=== PATIENT | female | born 1950 | race African-American/Black ===

== ENCOUNTER 2016-12-05 21:34 | Inpatient (IN) | payer MEDICARE, MEDICAID ==
[~2016-12-05] VITALS: Ht 160 cm; Wt 91.0 kg
[~2016-12-05 21:34] MED LIST: CLON0.2T PO; CORE3.12 OR; HYDR-2768 PO; LANTUSP SQ; LISI40TA PO; NOVO7030P2 SQ
[2016-12-05 21:41] VITALS: BP 182/87; PULSE 118; RESP 22; TEMP 98.3; O2SAT 97
[2016-12-05] MEDS ORDERED: SODIUM CHLOR 0.9% 1000 ML INJ 1,000 ML IV SCH (21:53)
[2016-12-05 21:56] VITALS: RESP 20
[2016-12-05] MEDS ORDERED: ONDANSETRON HCL 4 MG/2 ML VIAL IVP ONE (22:00)
[2016-12-05] MEDS ORDERED: MORPHINE SULFATE 4 MG/ML INJ IV PUSH ONE (22:00)
[2016-12-05] MEDS ORDERED: PANTOPRAZOLE SODIUM 40 MG VIAL IV PUSH ONE (22:00)
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
[2016-12-05 22:39] LABS: AUTOMATED NEUTROPHIL # 16.3 TH/MM3 (1.8-7.7); BASOPHIL # 0.1 TH/MM3 (0-0.2); BASOPHIL % 0.6 % (0.0-2.0); HEMATOCRIT 38.1 % (35.0-46.0); HEMO FLAGS DIFF FINAL; LYMPHOCYTE # 1.5 TH/MM3 (1.0-4.8); MEAN CELL VOLUME 86.2 FL (80.0-100.0); MEAN CORPUSCULAR HEMOGLOBIN 29.9 PG (27.0-34.0); MEAN CORPUSCULAR HGB CONC 34.7 % (32.0-36.0); MONO % 2.6 % (0.0-8.0); NEUT % 88.8 % (16.0-70.0); PLATELET COUNT 363 TH/MM3 (150-450); RED BLOOD COUNT 4.42 MIL/MM3 (4.00-5.30); RED CELL DISTRIBUTION WIDTH 14.3 % (11.6-17.2); WHITE BLOOD COUNT 18.4 TH/MM3 (4.0-11.0)
[2016-12-05 22:57] LABS: ANION GAP 17 MEQ/L (5-15); AST (GOT) 18 U/L (15-37); BICARBONATE 22.3 MEQ/L (21.0-32.0); BLOOD UREA NITROGEN 21 MG/DL (7-18); CHLORIDE 101 MEQ/L (98-107); GLOMERULAR FILTRATION RATE 50 ML/MIN (>89); POTASSIUM 3.4 MEQ/L (3.5-5.1); SODIUM (NA) 140 MEQ/L (136-145)
[2016-12-05 23:01] LABS: ALKALINE PHOSPHATASE 132 U/L (45-117); ALT (GPT) 26 U/L (10-53); TOTAL BILIRUBIN ADULT 0.5 MG/DL (0.2-1.0)
[2016-12-05] MEDS ORDERED: IOHEXOL 350 MG/ML 10 ML VIAL (for RAD DIAG) IV ONE (23:17)
[2016-12-05 23:32] LABS: BACTERIA, URINE RARE /hpf; BLOOD, URINE MOD (NEG); COMMENT (UR) CULT NOT INDICATED; CULTURE IF INDICATED CULT NOT INDICATED; GLUCOSE,URINE NEG (NEG); KETONE, URINE NEG (NEG); MUCUS URINE FEW /lpf (OCC); NITRITE,URINE NEG (NEG); PH, URINE 7.5 (5.0-8.5); SQUAMOUS EPITHELIAL CELL URINE 2 /hpf (0-5); URINE COLOR YELLOW (YELLW/STRAW)
[2016-12-05 23:34] LABS: APTT (PATIENT) 25.2 SEC (24.3-30.1); INTERNATIONAL NORMALIZED RATIO 0.9 RATIO
--- NOTE | 2016-12-05 23:34 | RADRPT ---
EXAM DATE/TIME: 12/05/2016 23:14 This report includes an Addendum and supersedes previous reports for this exam. [facility] COMPARISON: No previous studies available for comparison. INDICATIONS : Abdominal pain. IV CONTRAST: 96 cc Omnipaque 350 (iohexol) IV ORAL CONTRAST: No oral contrast ingested. RADIATION DOSE: 16.52 CTDIvol (mGy) MEDICAL HISTORY : Hypertension. Diabetes mellitus type 2. SURGICAL HISTORY : Appendectomy. Hysterectomy. ENCOUNTER: Initial ACUITY: 1 day PAIN SCALE: 6/10 LOCATION: abdomen TECHNIQUE: Volumetric scanning of the abdomen and pelvis was performed. Using automated exposure control and ad justment of the mA and/or kV according to patient size, radiation dose was kept as low as reasonably achievable to obtain optimal diagnostic quality images. FINDINGS: LOWER LUNGS: The visualized lower lungs are clear. LIVER: Homogeneous density without lesion. There is no dilation of the biliary tree. Gallbladder is surgica lly absent. SPLEEN: Normal size without lesion. PANCREAS: Within normal limits. KIDNEYS: Normal in size and shape. There is no mass, stone or hydronephrosis. A 3.6 cm simple cyst is seen ex ophytic from the lower pole the right kidney. Hounsfield units are 6. ADRENAL GLANDS: Within normal limits. VASCULAR: There is no aortic aneurysm. BOWEL/MESENTERY: There is circumferential wall thickening and mild stranding of the pericolonic fat throughout the felipe cending colon. Distal to this the rectosigmoid colon and proximal to this the transverse and ascendin g colon are normal in appearance. Small bowel is unremarkable. No free air or free fluid. ABDOMINAL WALL: Within normal limits. RETROPERITONEUM: There is no lymphadenopathy. BLADDER: No wall thickening or mass. REPRODUCTIVE: Within normal limits. INGUINAL: There is no lymphadenopathy or hernia. MUSCULOSKELETAL: Within normal limits for patient age. CONCLUSION: 1. Wall thickening and mild inflammatory changes involving the descending colon without diverticula. This is consistent with an inflammatory process. Ischemia seen in Crohn's disease as well as ulcerati ve colitis. I would suggest followup imaging to document complete resolution. 2. Prior cholecystectomy. Abe March Jr., MD on December 05, 2016 at 23:28 Board Certified Radiologist. This report was verified electronically. ADDENDUM: Mesenteric ischemia could have this same appearance. Abe March Jr., MD on December 06, 2016 at 0:10 Board Certified Radiologist. This report was verified electronically.
[2016-12-06] VITALS (21 sets, daily range): BP systolic 145–174; BP diastolic 62–81; PULSE 89–105; RESP 15–18; TEMP 98.1–99.2; O2SAT 97–100
[2016-12-06] MEDS ORDERED: PIPERACIL-TAZO 3.375 GM PREMIX 50 ML IV ONE (00:15)
[2016-12-06] MEDS ORDERED: SODIUM CHLOR 0.9% 1000 ML INJ 1,000 ML IV ONE (00:15)
[2016-12-06] MEDS ORDERED: SODIUM CHLOR 0.9% 250 ML INJ 250 ML IV ONE (00:15)
--- NOTE | 2016-12-06 02:14 | RADRPT ---
EXAM DATE/TIME: 12/05/2016 23:14 [facility] COMPARISON: No previous studies available for comparison. INDICATIONS : Mesenteric ischemia. IV CONTRAST: 100 cc Omnipaque 350 (iohexol) IV ; Cumulative dose for multiple exams. ORAL CONTRAST: No oral contrast ingested. RADIATION DOSE: CTDIvol (mGy) ; Reconstructed from previous dataset MEDICAL HISTORY : Hypertension. Diabetes mellitus type 2. SURGICAL HISTORY : Cholecystectomy. Hysterectomy. ENCOUNTER: Initial ACUITY: 2 days PAIN SCALE: 6/10 LOCATION: abdomen TECHNIQUE: 3-D postprocessing reformations were performed utilizing the dataset from the patient's prior CT scan . FINDINGS: ABDOMINAL AORTA: The lumen is smooth without significant narrowing or aneurismal dilation. The proximal celiac, superi or mesenteric, and inferior mesenteric arteries are patent and normal in diameter. There are solitar y renal arteries bilaterally without gross abnormality. BIFURCATION: Normal. RIGHT PELVIS: The right common iliac, internal iliac and external iliac vessels are patent without luminal irregula rity. LEFT PELVIS: The left common iliac, internal iliac and external iliac vessels are patent and without luminal irreg ularity. CONCLUSION: 1. Patent mesenteric vessels. Abe March Jr., MD on December 06, 2016 at 2:10 Board Certified Radiologist. This report was verified electronically.
--- NOTE | 2016-12-06 02:16 | PD ---
Data Data Last Documented VS Vital Signs Date Time Temp Pulse Resp B/P Pulse Ox O2 Delivery O2 Flow Rate FiO2 12/06/16 02:30 100 16 154/71 99 Nasal Cannula 2 12/06/16 02:15 98.6 Orders Complete Blood Count With Diff (12/05/16 21:53) Comprehensive Metabolic Panel (12/05/16 21:53) Lipase (12/05/16 21:53) Lactic Acid (12/05/16 21:53) Prothrombin Time / Inr (Pt) (12/05/16 21:53) Act Partial Throm Time (Ptt) (12/05/16 21:53) Urinalysis - C+S If Indicated (12/05/16 21:53) Ct Abd/Pel W Iv Contrast(Rout) (12/05/16 21:53) Iv Access Insert/Monitor (12/05/16 21:53) Ecg Monitoring (12/05/16 21:53) Oximetry (12/05/16 21:53) Morphine Inj (Morphine Inj) (12/05/16 22:00) Ondansetron Inj (Zofran Inj) (12/05/16 22:00) Sodium Chlor 0.9% 1000 Ml Inj (Ns 1000 M (12/05/16 21:53) Pantoprazole Inj (Protonix Inj) (12/05/16 22:00) Type And Screen (12/05/16 21:53) Blood Culture (12/05/16 22:15) Iohexol 350 Inj (Omnipaque 350 Inj) (12/05/16 23:17) Red Blood Cells (Rbc) (12/06/16 00:01) Blood Product Administration .UPON TRANSFUSION (12/06/16 00:01) Sodium Chlor 0.9% 250 Ml Inj (Ns 250 Ml (12/06/16 00:15) Piperacil-Tazo 3.375 Gm Premix (Zosyn 3. (12/06/16 00:15) Sodium Chlor 0.9% 1000 Ml Inj (Ns 1000 M (12/06/16 00:15) Cta Abd/Pel W Iv Contrast W 3d (12/06/16 ) Admit Order (Ed Use Only) (12/06/16 02:57) Labs Laboratory Tests Test 12/05/16 12/05/16 12/06/16 12/06/16 22:10 23:00 00:01 01:16 White Blood Count 18.4 TH/MM3 Red Blood Count 4.42 MIL/MM3 Hemoglobin 13.2 GM/DL Hematocrit 38.1 % Mean Corpuscular Volume 86.2 FL Mean Corpuscular Hemoglobin 29.9 PG Mean Corpuscular Hemoglobin 34.7 % Concent Red Cell Distribution Width 14.3 % Platelet Count 363 TH/MM3 Mean Platelet Volume 8.3 FL Neutrophils (%) (Auto) 88.8 % Lymphocytes (%) (Auto) 8.0 % Monocytes (%) (Auto) 2.6 % Eosinophils (%) (Auto) 0.0 % Basophils (%) (Auto) 0.6 % Neutrophils # (Auto) 16.3 TH/MM3 Lymphocytes # (Auto) 1.5 TH/MM3 Monocytes # (Auto) 0.5 TH/MM3 Eosinophils # (Auto) 0.0 TH/MM3 Basophils # (Auto) 0.1 TH/MM3 CBC Comment DIFF FINAL Differential Comment Prothrombin Time 10.0 SEC Prothromb Time International 0.9 RATIO Ratio Activated Partial 25.2 SEC Thromboplast Time Sodium Level 140 MEQ/L Potassium Level 3.4 MEQ/L Chloride Level 101 MEQ/L Carbon Dioxide Level 22.3 MEQ/L Anion Gap 17 MEQ/L Blood Urea Nitrogen 21 MG/DL Creatinine 1.29 MG/DL Estimat Glomerular Filtration 50 ML/MIN Rate Random Glucose 143 MG/DL Lactic Acid Level 4.8 mmol/L Calcium Level 9.9 MG/DL Total Bilirubin 0.5 MG/DL Aspartate Amino Transf 18 U/L (AST/SGOT) Alanine Aminotransferase 26 U/L (ALT/SGPT) Alkaline Phosphatase 132 U/L Total Protein 8.0 GM/DL Albumin 3.8 GM/DL Lipase 70 U/L Blood Type O POSITIVE O POSITIVE Antibody Screen NEGATIVE Blood Bank Comment Urine Color YELLOW Urine Turbidity CLEAR Urine pH 7.5 Urine Specific [place] 1.013 Urine Protein NEG mg/dL Urine Glucose (UA) NEG mg/dL Urine Ketones NEG mg/dL Urine Occult Blood MOD Urine Nitrite NEG Urine Bilirubin NEG Urine Urobilinogen LESS THAN 2.0 MG/DL Urine Leukocyte Esterase SMALL Urine RBC 5 /hpf Urine WBC 2 /hpf Urine Squamous Epithelial 2 /hpf Cells Urine Bacteria RARE /hpf Urine Mucus FEW /lpf Microscopic Urinalysis Comment CULT NOT INDICATED Crossmatch Leukocyte-Reduced Red Blood Cells [facility] Medical Record Reviewed: Yes Supervised Visit with LINDA: Yes Narrative Course I, Dr. Finch, have reviewed the advance practice practitioner's documentation and am in agreement, met with the patient face to face, made the diagnosis, and the medical decision making was done by me. *My assessment and Findings: CBC & BMP Diagram 12/05/16 22:10 Lactic acid 4.8 LFTs and lipase normal Urinalysis reveals hematuria Last 24 hours Impressions Abdomen/Pelvis CT 12/06/16 0000 Signed Impressions: Service Date/Time: Monday, December 05, 2016 23:14 - CONCLUSION: 1. Patent mesenteric vessels. Abe March Jr., MD Abdomen/Pelvis CT 12/05/16 2153 Signed Impressions: Service Date/Time: Monday, December 05, 2016 23:14 - CONCLUSION: 1. Wall thickening and mild inflammatory changes involving the descending colon without diverticula. This is consistent with an inflammatory process. Ischemia seen in Crohn's disease as well as ulcerative colitis. I would suggest followup imaging to document complete resolution. 2. Prior cholecystectomy. Abe March Jr., MD ADDENDUM: Mesenteric ischemia could have this same appearance. Abe March Jr., MD Patient has had hematochezia with tachycardia and colitis potentially ischemic colitis on CT. Reconstructed vascular imaging shows patent mesenteric arteries. Patient received 3 L of crystalloid here. She also received 2 units of packed red cells. Zosyn started. Patient was reassessed about 15 minutes prior to time of admission approximately 3:00 AM and at that time reported feeling much better. Heart rate about 100 with a blood pressure 150/80. Abdomen soft. Case discussed with Dr. Ospina. Diagnosis Primary Impression: Hematochezia Additional Impression: Colitis Admitting Information Admitting Physician Requests: Admit Nhan Finch MD Dec 06, 2016 02:16
[2016-12-06] MEDS ORDERED: ONDANSETRON HCL 4 MG/2 ML VIAL IV PRN (03:15)
[2016-12-06] MEDS ORDERED: CHLORHEXIDINE GLUCONATE 2 % 1 PACK (2 CLOTHS) TOP PRN (03:15)
[2016-12-06] MEDS ORDERED: TEMAZEPAM 15 MG CAP PO PRN (03:15)
[2016-12-06] MEDS ORDERED: SODIUM CHLORIDE 0.9% FLUSH 10 ML FLUSH PRN (03:15)
[2016-12-06] MEDS ORDERED: METOCLOPRAMIDE HCL 10 MG/2 ML VIAL IV PRN (03:15)
[2016-12-06] MEDS ORDERED: RESP: ALBUTEROL 2.5 MG/IPRATROPIUM 0.5 MG NEB (PRN) INH (03:15)
[2016-12-06] MEDS ORDERED: ACETAMINOPHEN 325 MG TAB PO PRN (03:15)
[2016-12-06] MEDS ORDERED: MISCELLANEOUS NURSING INFORMATION XX SCH (03:15)
--- NOTE | 2016-12-06 03:18 | HHI.HP ---
HPI Service Critical Care Medicine Primary Care Physician Betsy Steele MD Admission Diagnosis Hematochezia, Colitis Diagnosis: Travel History International Travel<30 Days: No Contact w/Intl Traveler <30 Da: No Traveled to Known Affected Are: No History of Present Illness 66-year-old very pleasant female presents for evaluation of bloody bowel movements with abdominal pain. Per patient the symptoms started at 11:00 a.m. prior to admission. She has been feeling nauseous and had a bowel movement that was red. Her pain has not improved and became more severe over an hour so she called the ambulance. She has never experienced any similar symptoms like this before. She has never had a heart attack or stroke. She doesn't smoke. Review of Systems Constitutional: DENIES: Diaphoretic episodes, Fatigue, Fever, Weight gain, Weight loss, Chills, Dizziness, Change in appetite, Night Sweats Endocrine: DENIES: Abnorml menstrual pattern, Heat/cold intolerance, Polydipsia , Polyuria, Polyphagia Eyes: DENIES: Blurred vision, Diplopia, Eye inflammation, Eye pain, Vision loss , Photosensitivity, Double Vision Ears, nose, mouth, throat: DENIES: Tinnitus, Hearing loss, Vertigo, Nasal discharge, Oral lesions, Throat pain, Hoarseness, Ear Pain, Running Nose, Epistaxis, Sinus Pain, Toothache, Odynophagia Respiratory: DENIES: Apneas, Cough, Snoring, Wheezing, Hemoptysis, Sputum production, Shortness of breath Cardiovascular: DENIES: Chest pain, Palpitations, Syncope, Dyspnea on Exertion , PND, Lower Extremity Edema, Orthopnea, Claudication Gastrointestinal: COMPLAINS OF: Abdominal pain, Black stools, Bloody stools, Nausea, Vomiting, DENIES: Constipation, Diarrhea, Difficulty Swallowing, Anorexia Genitourinary: DENIES: Abnormal vaginal bleeding, Dysmenorrhea, Dyspareunia, Sexual dysfunction, Urinary frequency, Urinary incontinence, Urgency, Hematuria , Dysuria, Nocturia, Vaginal discharge Musculoskeletal: DENIES: Joint pain, Muscle aches, Stiffness, Joint Swelling, Back pain, Neck pain Integumentary: DENIES: Abnormal pigmentation, Pruritus, Rash, Nail changes, Breast masses, Breast skin changes, Nipple discharge Past Family Social History Allergies: Coded Allergies: Ultracet (Verified Allergy, Severe, RASH, ITCHING, HALLUCINATING, 12/06/16) Past Surgical History High Cholesterol Diabetes Hypertension Migraines Reported Medications Hemorrhoidectomy Cholecystectomy Hysterectomy Sinus surgery Active Ordered Medications Reported Meds & Active Scripts Active Reported Lisinopril 40 Mg Tab 40 Mg PO DAILY Novolin 70-30 Inj (Insulin Human Isoph/Insulin Regular) 1,000 Unit/10 Ml Vial 40 Units SQ Lantus Inj (Insulin Glargine) 100 Unit/Ml Inj 10 Hydrochlorothiazide 25 Mg Tab 25 Mg PO BID Clonidine (Clonidine HCl) 0.2 Mg Tab 0.2 Mg PO BID Coreg (Carvedilol) 12.5 Mg Tab 12.5 Mg PO BID Family History Noncontributory Social History Negative 3 Physical Exam Vital Signs Vital Signs Date Time Temp Pulse Resp B/P Pulse Ox O2 Delivery O2 Flow Rate FiO2 12/06/16 02:45 101 16 158/73 99 Nasal Cannula 2 12/06/16 02:30 100 16 154/71 99 Nasal Cannula 2 12/06/16 02:20 100 18 156/71 99 Nasal Cannula 2 12/06/16 02:15 98.6 99 18 151/71 99 Nasal Cannula 2 12/06/16 00:50 96 16 174/81 99 Room Air 12/05/16 22:27 18 12/05/16 21:56 20 12/05/16 21:41 98.3 118 22 182/87 97 Physical Exam GENERAL: Well-nourished, well-developed patient. In no acute distress SKIN: Warm and dry. HEAD: Normocephalic. EYES: No scleral icterus. No injection or drainage. NECK: Supple, trachea midline. No JVD or lymphadenopathy. CARDIOVASCULAR: Regular rate and rhythm without murmurs, gallops, or rubs. RESPIRATORY: Breath sounds equal bilaterally. No accessory muscle use. GASTROINTESTINAL: Abdomen soft, non-tender, nondistended. MUSCULOSKELETAL: No cyanosis, or edema. BACK: Nontender without obvious deformity. No CVA tenderness. EXTREMITIES: No clubbing cyanosis or edema Laboratory Laboratory Tests Test 12/05/16 12/05/16 12/06/16 12/06/16 22:10 23:00 00:01 01:16 White Blood Count 18.4 Red Blood Count 4.42 Hemoglobin 13.2 Hematocrit 38.1 Mean Corpuscular Volume 86.2 Mean Corpuscular Hemoglobin 29.9 Mean Corpuscular Hemoglobin 34.7 Concent Red Cell Distribution Width 14.3 Platelet Count 363 Mean Platelet Volume 8.3 Neutrophils (%) (Auto) 88.8 Lymphocytes (%) (Auto) 8.0 Monocytes (%) (Auto) 2.6 Eosinophils (%) (Auto) 0.0 Basophils (%) (Auto) 0.6 Neutrophils # (Auto) 16.3 Lymphocytes # (Auto) 1.5 Monocytes # (Auto) 0.5 Eosinophils # (Auto) 0.0 Basophils # (Auto) 0.1 CBC Comment DIFF FINAL Differential Comment Prothrombin Time 10.0 Prothromb Time International 0.9 Ratio Activated Partial 25.2 Thromboplast Time Sodium Level 140 Potassium Level 3.4 Chloride Level 101 Carbon Dioxide Level 22.3 Anion Gap 17 Blood Urea Nitrogen 21 Creatinine 1.29 Estimat Glomerular Filtration 50 Rate Random Glucose 143 Lactic Acid Level 4.8 Calcium Level 9.9 Total Bilirubin 0.5 Aspartate Amino Transf 18 (AST/SGOT) Alanine Aminotransferase 26 (ALT/SGPT) Alkaline Phosphatase 132 Total Protein 8.0 Albumin 3.8 Lipase 70 Blood Type O POSITIVE O POSITIVE Antibody Screen NEGATIVE Blood Bank Comment Urine Color YELLOW Urine Turbidity CLEAR Urine pH 7.5 Urine Specific [place] 1.013 Urine Protein NEG Urine Glucose (UA) NEG Urine Ketones NEG Urine Occult Blood MOD Urine Nitrite NEG Urine Bilirubin NEG Urine Urobilinogen LESS THAN 2.0 Urine Leukocyte Esterase SMALL Urine RBC 5 Urine WBC 2 Urine Squamous Epithelial 2 Cells Urine Bacteria RARE Urine Mucus FEW Microscopic Urinalysis Comment CULT NOT INDICATED Crossmatch Leukocyte-Reduced Red Blood Cells Date/Time Procedure Status Source Growth 12/05/16 22:20 Aerobic Blood Culture Received Blood Peripheral Pending 12/05/16 22:20 Anaerobic Blood Culture Received Blood Peripheral Pending Result Diagram: 12/05/16 2210 12/05/16 2210 Imaging Last 24 hours Impressions Abdomen/Pelvis CT 12/06/16 0000 Signed Impressions: Service Date/Time: Monday, December 05, 2016 23:14 - CONCLUSION: 1. Patent mesenteric vessels. Abe March Jr., MD Abdomen/Pelvis CT 12/05/[id number] Signed Impressions: Service Date/Time: Monday, December 05, 2016 23:14 - CONCLUSION: 1. Wall thickening and mild inflammatory changes involving the descending colon without diverticula. This is consistent with an inflammatory process. Ischemia seen in Crohn's disease as well as ulcerative colitis. I would suggest followup imaging to document complete resolution. 2. Prior cholecystectomy. Abe March Jr., MD ADDENDUM: Mesenteric ischemia could have this same appearance. Abe March Jr., MD Assessment and Plan Assessment and Plan Colitis - Patent mesenteric vessels on CTA - Monitor lactic acidosis trend - Gastroenterology consult - IV fluids resuscitation - Empiric antibiotics Rocephin and Flagyl - Protonix twice a day Hypertension - Resume home meds Abdominal pain - Pain control Diabetes - Insulin sliding scale DVT GI prophylaxis - Teds SCDs - No pharmacological prophylaxis due to active GI bleed - Protonix IV twice a day Critical Care: The total critical care time was 35 minutes. Time to perform other separately billable procedures was not included in the critical care time. Sky Ospina MD Dec 06, 2016 03:18
[2016-12-06] MEDS: SODIUM CHLOR 0.9% 1000 ML INJ 1,000 ML IV SCH ×3 (04:34→14:31)
[2016-12-06] MEDS: PANTOPRAZOLE SODIUM 40 MG VIAL IV SCH ×2 (04:34→15:28)
[2016-12-06] MEDS: MORPHINE SULFATE 4 MG/ML INJ IV PRN ×4 (04:59→20:19)
[2016-12-06] MEDS ORDERED: CLON0.2T PO (05:03)
[2016-12-06] MEDS ORDERED: NOVO7030P2 SQ (05:03)
[2016-12-06] MEDS ORDERED: CARV12.5 PO (05:03)
[2016-12-06] MEDS ORDERED: HYDR25TA5 PO (05:03)
[2016-12-06] MEDS ORDERED: LANTUS2P (05:03)
[2016-12-06] MEDS ORDERED: LISI40TA PO (05:03)
[2016-12-06] MEDS: metroNIDAZOLE 500 MG INJ 100 ML IV SCH ×3 (05:44→20:19)
[2016-12-06] MEDS ORDERED: cefTRIAXone INJ 1,000 MG in SODIUM CHLORIDE 0.9% INJ 100 ML IV SCH (06:00)
[2016-12-06] MEDS ORDERED: hydrALAZINE HCL 20 MG/ML VIAL IV PUSH PRN (08:30)
[2016-12-06] MEDS ORDERED: LABETALOL HCL 100 MG/20 ML VIAL IV PUSH PRN (08:30)
[2016-12-06] MEDS ORDERED: NITROGLYCERIN 2% OINT 1 GM PACKET TOPICAL PRN (08:30)
--- NOTE | 2016-12-06 08:43 | HHI.CCPN ---
Subjective Remarks/Hospital Course 66-year-old very pleasant female presents for evaluation of bloody bowel movements with abdominal pain. Per patient the symptoms started at 11:00 a.m. prior to admission. She has been feeling nauseous and had a bowel movement that was red. Her pain has not improved and became more severe over an hour so she called the ambulance. She has never experienced any similar symptoms like this before. She has never had a heart attack or stroke. She doesn't smoke. Subjective 12/06: Patient received 2 units PRBCs overnight. Continues to have 12 out of 10 abdominal pain that "comes in waves". Positive bright red blood per rectum/ hematochezia. Hemodynamically stable. Afebrile. Objective Vital Signs Date Time Temp Pulse Resp B/P Pulse Ox O2 Delivery O2 Flow Rate FiO2 12/06/16 07:17 16 12/06/16 07:17 98.6 95 151/75 98 Nasal Cannula 2 Result Diagram: 12/05/16 2210 12/05/16 2210 Other Results Microbiology Date/Time Procedure Status Source Growth 12/05/16 22:20 Aerobic Blood Culture Received Blood Peripheral Pending 12/05/16 22:20 Anaerobic Blood Culture Received Blood Peripheral Pending Imaging Last Impressions Abdomen/Pelvis CT 12/06/16 0000 Signed Impressions: Service Date/Time: Monday, December 05, 2016 23:14 - CONCLUSION: 1. Patent mesenteric vessels. Abe March Jr., MD Objective Remarks GENERAL: 66 yo AAF, critically ill currently resting in bed in no acute distress SKIN: Warm and dry. Well perfused. No rash HEAD: Normocephalic. Atraumatic. EYES: PERRL about 3 mm bilaterally and reactive. No scleral icterus. No injection or drainage. NECK: Supple, trachea midline. No JVD or lymphadenopathy. CARDIOVASCULAR: RRR. S1, S2. No S4. Without murmur RESPIRATORY: Essentially clear to auscultation bilaterally without wheezes, rales or rhonchi. No accessory muscle use. GASTROINTESTINAL: Abdomen soft, tender to palpation throughout all 4 quadrants worsening left lower quadrant. Positive rebound. No rigidity. Hypoactive bowel sounds. MUSCULOSKELETAL: No new significant peripheral edema. NEURO: Cranial nerves II through XII grossly intact. Strength is equal symmetric bilaterally. Normal sensation. A/P Assessment and Plan Neuro/Psych: History of migraine headaches [place]/Morphine as needed for pain management CV: Hypertension Dyslipidemia Lactic acidosis Currently on normal saline 125 cc an hour Serial lactates until clear. Currently 2.2. Repeat abdomen Home medications lisinopril 40 mEq daily, Correctol with no grams twice a day and clonidine 0.2 mg by mouth twice a day currently on hold Home medications hydrochlorothiazide 20 mg twice a day currently on hold Troponin less than 0.02. Resp: Nasal cannula to maintain saturations greater than or equal to 92% Incentive spirometry while awake Currently on 2 L nasal cannula GI: Hematochezia Abdominal pain Left-sided colitis Currently nothing by mouth CT of abdomen/pelvis 12/06 revealed wall thickening descending colon. Mesenteric vessels including celiac, SMA and GIACOMO patent. Gastroenterology consulted for colonoscopy See ID for antibiotic coverage See Heme for serial hemoglobins/transfusion : [place] if indicated for accurate I's and O's in a critically ill patient Endo: Hyperglycemia Diabetes mellitus type 2 Home medications Novulin 70/30 40 units twice a day and Lantus unknown dosage daily currently on hold Sliding-scale insulin with Accu-Cheks to maintain euglycemia/every 4 hours/ moderate regimen Renal: Acute kidney injury Monitor urine output Accurate I's and O's Repeat BMP at noon Heme: Leukocytosis Transfuse 2 units PRBCs overnight. Recheck hemoglobin at noon with serial hemoglobins every 6 hours Coags within normal limits ID: Antibiotics Zosyn/Flagyl day #1 ordered. For ischemic colitis likely Blood cultures 2 12/05 pending FEN: Hypokalemia Replace electrolytes as clinically indicated ICU electrolyte protocol initiated MSK: PT evaluate and treat Access - Utilize peripheral IV. Central line if indicated Prophylaxis - GI - Protonix - DVT - SCD/holding pharmacological prophylaxis in light of lower GI bleed Critical Care: The total additional critical care time was 45 minutes. Time to perform other separately billable procedures was not included in the critical care time. David Lund MD Dec 06, 2016 08:43 Hypertension - Resume home meds Abdominal pain - Pain control Diabetes - Insulin sliding scale DVT GI prophylaxis - Teds SCDs - No pharmacological prophylaxis due to active GI bleed - Protonix IV twice a day Critical Care: The total critical care time was 35 minutes. Time to perform other separately billable procedures was not included in the critical care time. David Lund MD Dec 06, 2016 08:43
[2016-12-06] MEDS ORDERED: POTASSIUM PHOSPHATE MONOBASIC 500 MG TAB PO/TUBE PRN (08:45)
[2016-12-06] MEDS ORDERED: MAGNESIUM OXIDE 400 MG TAB PO PRN (08:45)
[2016-12-06] MEDS ORDERED: POTASSIUM PHOSPHATE MONOBASIC 500 MG TAB PO PRN (08:45)
[2016-12-06] MEDS ORDERED: POTASSIUM CHLOR 20 MEQ PREMIX 100 ML IV PRN ×2 (08:45)
[2016-12-06] MEDS ORDERED: POTASSIUM CHLOR 40 MEQ PREMIX 100 ML IV PRN ×2 (08:45)
[2016-12-06] MEDS ORDERED: POTASSIUM CHLORIDE 25 MEQ EFFERVESCENT TAB PO PRN (08:45)
[2016-12-06] MEDS ORDERED: ACETAMINOPHEN/HYDROcodone 325 MG/5 MG TAB PO PRN (08:45)
[2016-12-06] MEDS ORDERED: SODIUM PHOSPHATE INJ 30 MMOL in SODIUM CHLOR 0.9% 250 ML INJ 240 ML IV PRN (08:45)
[2016-12-06] MEDS ORDERED: POTASSIUM PHOSPHATE INJ 30 MMOL in SODIUM CHLOR 0.9% 250 ML INJ 250 ML IV PRN (08:45)
[2016-12-06] MEDS ORDERED: MAGNESIUM SULFATE INJ 2 GM in SODIUM CHLORIDE 0.9% INJ 96 ML IV PRN (08:45)
[2016-12-06] MEDS ORDERED: MAGNESIUM SULFATE INJ 4 GM in SODIUM CHLORIDE 0.9% INJ 92 ML IV PRN (08:45)
[2016-12-06] MEDS ORDERED: SODIUM CHLORIDE 0.9% FLUSH 10 ML FLUSH IV FLUSH PRN (08:45)
[2016-12-06] MEDS ORDERED: SODIUM CHLORIDE 0.9% FLUSH 10 ML FLUSH SCH (09:00)
[2016-12-06] MEDS ORDERED: DEXTROSE 50% IN WATER 50 ML VIAL(D50) IV PUSH PRN (09:00)
[2016-12-06] MEDS ORDERED: GLUCAGON 1 MG/ML VIAL OTHER PRN (09:00)
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
[2016-12-06] MEDS: PIPERACIL-TAZO 4.5 GM PREMIX 100 ML IV SCH ×2 (10:54→18:16)
[2016-12-06] MEDS: SODIUM CHLORIDE 0.9% FLUSH 10 ML FLUSH IV FLUSH SCH ×2 (10:56→23:30)
[2016-12-06] MEDS: INSULIN NovoLIN REGULAR SUPPLEMENTAL SCALE SQ SCH ×4 (11:56→23:30)
[2016-12-06 13:22] LABS: AUTOMATED NEUTROPHIL # 10.5 TH/MM3 (1.8-7.7); BASOPHIL # 0.1 TH/MM3 (0-0.2); BASOPHIL % 0.8 % (0.0-2.0); EOSINOPHIL # 0.1 TH/MM3 (0-0.4); EOSINOPHIL % 0.8 % (0.0-4.0); HEMATOCRIT 40.1 % (35.0-46.0); HEMO FLAGS DIFF FINAL; LYMPH % 20.2 % (9.0-44.0); LYMPHOCYTE # 2.9 TH/MM3 (1.0-4.8); MEAN CELL VOLUME 88.1 FL (80.0-100.0); MEAN CORPUSCULAR HEMOGLOBIN 30.1 PG (27.0-34.0); MEAN CORPUSCULAR HGB CONC 34.2 % (32.0-36.0); MONO % 4.8 % (0.0-8.0); NEUT % 73.4 % (16.0-70.0); PLATELET COUNT 296 TH/MM3 (150-450); RED BLOOD COUNT 4.55 MIL/MM3 (4.00-5.30); RED CELL DISTRIBUTION WIDTH 14.5 % (11.6-17.2); WHITE BLOOD COUNT 14.3 TH/MM3 (4.0-11.0)
[2016-12-06 13:45] LABS: BICARBONATE 19.7 MEQ/L (21.0-32.0)
--- NOTE | 2016-12-06 13:46 | EKG ---
Date Performed: 12/06/2016 Time Performed: 04:14:39 PTAGE: 66 years EKG: Sinus rhythm SEPTAL MYOCARDIAL INFARCTION ABNORMAL ECG Compared to prior tracing no significant change PREVIOUS TRACING : 06/07/2013 18.30 DOCTOR: Ilya Uribe Interpretating Date/Time 12/06/2016 13:39:49
--- NOTE | 2016-12-06 13:46 | EKG ---
Date Performed: 12/06/2016 Time Performed: 09:31:52 PTAGE: 66 years EKG: Sinus rhythm SEPTAL MYOCARDIAL INFARCTION ABNORMAL ECG Compared to prior tracing no significant change PREVIOUS TRACING : 12/06/2016 04.14 DOCTOR: Ilya Uribe Interpretating Date/Time 12/06/2016 13:40:17
[2016-12-06 13:50] LABS: MAGNESIUM 1.9 MG/DL (1.5-2.5); POTASSIUM 3.5 MEQ/L (3.5-5.1)
[2016-12-06] MEDS ORDERED: PROPOFOL 200 MG/20 ML AMP IV ONE (17:30)
--- NOTE | 2016-12-06 17:44 | GIPROC ---
[facility] [address] [facility] [place]. [facility], [address] COLONOSCOPY PROCEDURE REPORT EXAM DATE: 12/06/2016 PATIENT NAME: Apoorva Mcdonald MR #: [id number] BIRTHDATE: 1950 ENDOSCOPIST: Nahomi Ramirez MD ORDER #: [id number] SECTION SUPERVISOR: Mi Alcocer RN STATUS: inpatient INDICATIONS: The patient is a 66 yr old female here for a colonoscopy due to gi bleeding, colitis PROCEDURE PERFORMED: Colonoscopy with biopsy MEDICATIONS: Per Anesthesia and None. PREP QUALITY: fair ESTIMATED BLOOD LOSS: None CONSENT: The patient understands the risks and benefits of the procedure and understands that these risks include, but are not limited to: sedation, allergic reaction, infection, perforation and/or bleeding. Alternative means of evaluation and treatment include, among others: physical exam, x-rays, and/or surgical intervention. The patient elects to proceed with this endoscopic procedure. medical equipment was checked for proper function. Hand hygiene and appropriate measures for infection prevention was taken. After the risks, benefits and alternatives of the procedure were thoroughly explained, Informed consent was verified, confirmed and timeout was successfully executed by the treatment team. A digital exam revealed hemorrhoids The endoscope was introduced through the anus and advanced to the splenic flexure. The instrument was then slowly withdrawn as the colon was fully examined. COLON FINDINGS: Ischemic colitis involving descending, splenic flexure, biopsy descending. Retroflexed views revealed internal hemorrhoids and Retroflexed views revealed small internal hemorrhoids The scope was then completely withdrawn from the patient and the procedure terminated. ADVERSE EVENTS: There were no complications. IMPRESSIONS: 1. Ischemic colitis involving descending, splenic flexure, biopsy descending 2. Retroflexed views revealed internal hemorrhoids 3. Retroflexed views revealed small internal hemorrhoids 4. Revealed hemorrhoids RECOMMENDATIONS: Clear liquid diet if worsening symptoms consult surgery RECALL: Colonoscopy, pending biopsy results Nahomi Ramirez MD eSigned: Nahomi Ramirez MD 12/06/2016 5:44 PM cc:
[2016-12-06] MEDS: ONDANSETRON HCL 4 MG/2 ML VIAL IV PRN (20:19)
[2016-12-06 20:32] LABS: HEMATOCRIT 37.7 % (35.0-46.0); REVIEW FLAG FINAL
[2016-12-06 23:06] LABS: HEMATOCRIT 39.2 % (35.0-46.0); REVIEW FLAG FINAL
[2016-12-06] MEDS: CHLORHEXIDINE GLUCONATE 2 % 1 PACK (2 CLOTHS) TOP SCH (23:29)
[2016-12-07] VITALS (14 sets, daily range): BP systolic 113–162; BP diastolic 57–75; PULSE 78–96; RESP 14–21; TEMP 97.6–99.1; O2SAT 94–100
[2016-12-07] MEDS: PIPERACIL-TAZO 4.5 GM PREMIX 100 ML IV SCH ×3 (02:09→17:35)
[2016-12-07] MEDS: MORPHINE SULFATE 4 MG/ML INJ IV PRN ×3 (02:09→20:26)
[2016-12-07] MEDS: SODIUM CHLOR 0.9% 1000 ML INJ 1,000 ML IV SCH ×2 (02:12→17:36)
[2016-12-07 03:34] LABS: HEMATOCRIT 38.5 % (35.0-46.0); REVIEW FLAG FINAL
[2016-12-07] MEDS: INSULIN NovoLIN REGULAR SUPPLEMENTAL SCALE SQ SCH ×4 (04:00→20:25)
[2016-12-07] MEDS: PANTOPRAZOLE SODIUM 40 MG VIAL IV SCH ×2 (04:33→17:36)
[2016-12-07] MEDS: metroNIDAZOLE 500 MG INJ 100 ML IV SCH ×3 (04:34→20:24)
[2016-12-07 05:04] LABS: AUTOMATED NEUTROPHIL # 9.8 TH/MM3 (1.8-7.7); BASOPHIL # 0.1 TH/MM3 (0-0.2); BASOPHIL % 0.7 % (0.0-2.0); EOSINOPHIL # 0.1 TH/MM3 (0-0.4); HEMO FLAGS DIFF FINAL; LYMPH % 19.3 % (9.0-44.0); LYMPHOCYTE # 2.6 TH/MM3 (1.0-4.8); MEAN CELL VOLUME 87.6 FL (80.0-100.0); MEAN CORPUSCULAR HEMOGLOBIN 30.4 PG (27.0-34.0); MEAN CORPUSCULAR HGB CONC 34.7 % (32.0-36.0); MONO % 4.9 % (0.0-8.0); NEUT % 74.1 % (16.0-70.0); PLATELET COUNT 249 TH/MM3 (150-450); RED BLOOD COUNT 4.23 MIL/MM3 (4.00-5.30); RED CELL DISTRIBUTION WIDTH 14.4 % (11.6-17.2); WHITE BLOOD COUNT 13.3 TH/MM3 (4.0-11.0)
[2016-12-07 05:42] LABS: ALKALINE PHOSPHATASE 96 U/L (45-117); ALT (GPT) 25 U/L (10-53); ANION GAP 10 MEQ/L (5-15); AST (GOT) 24 U/L (15-37); BICARBONATE 23.7 MEQ/L (21.0-32.0); BLOOD UREA NITROGEN 8 MG/DL (7-18); CHLORIDE 106 MEQ/L (98-107); GLOMERULAR FILTRATION RATE 85 ML/MIN (>89); HDL CHOLESTEROL 45.6 MG/DL (40.0-60.0); LDL CHOLESTEROL 54 MG/DL (0-99); MAGNESIUM 1.9 MG/DL (1.5-2.5); SODIUM (NA) 140 MEQ/L (136-145); TOTAL BILIRUBIN ADULT 0.8 MG/DL (0.2-1.0)
[2016-12-07 05:44] LABS: POTASSIUM 2.8 MEQ/L (3.5-5.1)
[2016-12-07] MEDS ORDERED: hydrALAZINE HCL 20 MG/ML VIAL IV PUSH PRN (07:45)
[2016-12-07] MEDS ORDERED: MAGNESIUM SULFATE 1 GM PREMIX 100 ML IV ONE (07:45)
[2016-12-07] MEDS ORDERED: NITROGLYCERIN 2% OINT 1 GM PACKET TOPICAL PRN (07:45)
--- NOTE | 2016-12-07 07:51 | HHI.CCPN ---
Subjective Remarks/Hospital Course 66-year-old very pleasant female presents for evaluation of bloody bowel movements with abdominal pain. Per patient the symptoms started at 11:00 a.m. prior to admission. She has been feeling nauseous and had a bowel movement that was red. Her pain has not improved and became more severe over an hour so she called the ambulance. She has never experienced any similar symptoms like this before. She has never had a heart attack or stroke. She doesn't smoke. 12/06: Patient received 2 units PRBCs overnight. Continues to have 12 out of 10 abdominal pain that "comes in waves". Positive bright red blood per rectum/ hematochezia. Hemodynamically stable. Afebrile. Subjective 12/07: Tmax 99.2. Currently 99. Abdominal pain currently 5 out of 10. Hematuria this a.m. Potassium currently been replaced. Subjectively looks much improved compared to yesterday. Objective Vital Signs Date Time Temp Pulse Resp B/P Pulse Ox O2 Delivery O2 Flow Rate FiO2 12/07/16 06:24 20 12/07/16 06:00 89 12/07/16 04:00 99.1 162/75 100 12/07/16 02:30 Nasal Cannula 2.00 Intake and Output 12/06/16 12/06/16 12/07/16 08:00 16:00 00:00 Intake Total 0 ml 1291 ml Output Total 200 ml Balance 0 ml 1091 ml Result Diagram: 12/07/16 0406 12/07/16 0406 Other Results Microbiology Date/Time Procedure Status Source Growth 12/05/16 22:20 Aerobic Blood Culture - Preliminary Resulted Blood Peripheral NO GROWTH IN 1 DAY 12/05/16 22:20 Anaerobic Blood Culture - Preliminary Resulted Blood Peripheral NO GROWTH IN 1 DAY Imaging Last Impressions Abdomen/Pelvis CT 12/06/16 0000 Signed Impressions: Service Date/Time: Monday, December 05, 2016 23:14 - CONCLUSION: 1. Patent mesenteric vessels. Abe March Jr., MD Objective Remarks GENERAL: 66 yo AAF,currently resting in bed in no acute distress SKIN: Warm and dry. Well perfused. No rash HEAD: Normocephalic. Atraumatic. EYES: PERRL about 3 mm bilaterally and reactive. No scleral icterus. No injection or drainage. NECK: Supple, trachea midline. No JVD or lymphadenopathy. CARDIOVASCULAR: RRR. S1, S2. No S4. Without murmur RESPIRATORY: Essentially clear to auscultation bilaterally without wheezes, rales or rhonchi. No accessory muscle use. GASTROINTESTINAL: Abdomen soft, less tender to palpation throughout all 4 quadrants. Positive rebound. No rigidity. Hypoactive bowel sounds. MUSCULOSKELETAL: No new significant peripheral edema. NEURO: Cranial nerves II through XII grossly intact. Strength is equal symmetric bilaterally. Normal sensation. A/P Assessment and Plan Neuro/Psych: History of migraine headaches [place]/Morphine as needed for pain management CV: Hypertension Dyslipidemia Lactic acidosis - resolved Currently on normal saline 50 cc an hour Serial lactates until clear. Currently 1.1 Home medications lisinopril 40 milligrams daily, Coreg 12.5 mg twice a day and clonidine 0.2 mg by mouth twice a day Restart with lisinopril 10 twice a day, Coreg 6.25 twice a day and clonidine 0.1 twice a day. As needed hydralazine/Nitropaste for hypertension Home medications hydrochlorothiazide 25 mg twice a day currently on hold Troponin less than 0.02. Resp: Nasal cannula to maintain saturations greater than or equal to 92% Incentive spirometry while awake Currently on 2 L nasal cannula GI: Hematochezia Abdominal pain Left-sided colitis - ischemic colitis Internal hemorrhoids Currently on ADA 1800 clear liquid diet/[address] of abdomen/pelvis 12/06 revealed wall thickening descending colon. Mesenteric vessels including celiac, SMA and GIACOMO patent. Colonoscopy 12/06 revealed ischemic lyse any descending colon and stomach/. Internal hemorrhoids. See ID for antibiotic coverage See Heme for serial hemoglobins/transfusion : [place] if indicated for accurate I's and O's in a critically ill patient Endo: Hyperglycemia Diabetes mellitus type 2 Home medications Novulin 70/30 40 units twice a day and Lantus unknown dosage daily currently on hold Restarted 40 units twice a day today Sliding-scale insulin with Accu-Cheks to maintain euglycemia/every before meals/ at bedtime and O300 /moderate regimen. 40 insulin scale past 24 hours Renal: Acute kidney injury Monitor urine output Accurate I's and O's Repeat BMP in a.m. Heme: Leukocytosis Transfuse 2 units PRBCs 12/06. Coags within normal limits ID: Antibiotics Zosyn/Flagyl day #2 ordered. For ischemic colitis Blood cultures 2 12/05 no growth FEN: Hypokalemia Hypophosphatemia Replace electrolytes as clinically indicated ICU electrolyte protocol initiated Received 80 mEq by mouth 1 today along with 20 mEq IV. 1 g mag sulfate. Neutra-Phos 3 doses. Recheck in a.m. MSK: PT evaluate and treat Access - Utilize peripheral IV. Central line if indicated Prophylaxis - GI - Protonix - DVT - SCD/holding pharmacological prophylaxis in light of lower GI bleed Critical Care: The total critical care time was 35 minutes. Time to perform other separately billable procedures was not included in the critical care time. David Lund MD Dec 07, 2016 07:51
--- NOTE | 2016-12-07 07:54 | PD.TRANSFR ---
Transfer Summary Admission Date Dec 06, 2016 at 02:58 Admitting Diagnosis Hematochezia, Colitis Diagnoses: (1) Ischemic colitis Diagnosis: Principal (2) Diabetes mellitus Diagnosis: Principal (3) Hypertension Diagnosis: Principal (4) Hypokalemia Diagnosis: Principal Significant Findings Colonoscopy - 12/06 - ischemic colitis at splenic flexure/descending colon. Internal hemorrhoids. Transfer Summary/Subjective This is a 66-year-old female. She is admitted to the morning of 12/[address] revealed colitis in the setting colon. No signs of mesenteric ischemia. Patient lactic acidosis which has since cleared. Colonoscopy was performed with results as above. Currently stable for transfer to floor. If worsens, will need general surgery consult. Objective Vital Signs Date Time Temp Pulse Resp B/P Pulse Ox O2 Delivery O2 Flow Rate FiO2 12/07/16 06:24 20 12/07/16 06:00 89 12/07/16 04:00 99.1 162/75 100 12/07/16 02:30 Nasal Cannula 2.00 Intake and Output 12/06/16 12/06/16 12/07/16 08:00 16:00 00:00 Intake Total 0 ml 1291 ml Output Total 200 ml Balance 0 ml 1091 ml Result Diagram: 12/07/16 0406 12/07/16 0406 Imaging Last Impressions Abdomen/Pelvis CT 12/06/16 0000 Signed Impressions: Service Date/Time: Monday, December 05, 2016 23:14 - CONCLUSION: 1. Patent mesenteric vessels. Abe March Jr., MD Objective Remarks GENERAL: 66 yo AAF,currently resting in bed in no acute distress SKIN: Warm and dry. Well perfused. No rash HEAD: Normocephalic. Atraumatic. EYES: PERRL about 3 mm bilaterally and reactive. No scleral icterus. No injection or drainage. NECK: Supple, trachea midline. No JVD or lymphadenopathy. CARDIOVASCULAR: RRR. S1, S2. No S4. Without murmur RESPIRATORY: Essentially clear to auscultation bilaterally without wheezes, rales or rhonchi. No accessory muscle use. GASTROINTESTINAL: Abdomen soft, less tender to palpation throughout all 4 quadrants. Positive rebound. No rigidity. Hypoactive bowel sounds. MUSCULOSKELETAL: No new significant peripheral edema. NEURO: Cranial nerves II through XII grossly intact. Strength is equal symmetric bilaterally. Normal sensation. A/P Assessment and Plan Neuro/Psych: History of migraine headaches [place]/Morphine as needed for pain management CV: Hypertension Dyslipidemia Lactic acidosis - resolved Currently on normal saline 50 cc an hour Serial lactates until clear. Currently 1.1 Home medications lisinopril 40 milligrams daily, Coreg 12.5 mg twice a day and clonidine 0.2 mg by mouth twice a day Restart with lisinopril 10 twice a day, Coreg 6.25 twice a day and clonidine 0.1 twice a day. As needed hydralazine/Nitropaste for hypertension Home medications hydrochlorothiazide 25 mg twice a day currently on hold Troponin less than 0.02. Resp: Nasal cannula to maintain saturations greater than or equal to 92% Incentive spirometry while awake Currently on 2 L nasal cannula GI: Hematochezia Abdominal pain Left-sided colitis - ischemic colitis Internal hemorrhoids Currently on ADA 1800 clear liquid diet/[address] of abdomen/pelvis 12/06 revealed wall thickening descending colon. Mesenteric vessels including celiac, SMA and GIACOMO patent. Colonoscopy 12/06 revealed ischemic lyse any descending colon and stomach/. Internal hemorrhoids. See ID for antibiotic coverage See Heme for serial hemoglobins/transfusion : [place] if indicated for accurate I's and O's in a critically ill patient Endo: Hyperglycemia Diabetes mellitus type 2 Home medications Novulin 70/30 40 units twice a day and Lantus unknown dosage daily currently on hold Restarted 40 units twice a day today Sliding-scale insulin with Accu-Cheks to maintain euglycemia/every before meals/ at bedtime and O300 /moderate regimen. 40 insulin scale past 24 hours Renal: Acute kidney injury Monitor urine output Accurate I's and O's Repeat BMP in a.m. Heme: Leukocytosis Transfuse 2 units PRBCs 12/06. Coags within normal limits ID: Antibiotics Zosyn/Flagyl day #2 ordered. For ischemic colitis Blood cultures 2 12/05 no growth FEN: Hypokalemia Hypophosphatemia Replace electrolytes as clinically indicated ICU electrolyte protocol initiated Received 80 mEq by mouth 1 today along with 20 mEq IV. 1 g mag sulfate. Neutra-Phos 3 doses. Recheck in a.m. MSK: PT evaluate and treat Access - Utilize peripheral IV. Central line if indicated Prophylaxis - GI - Protonix - DVT - SCD/holding pharmacological prophylaxis in light of lower GI bleed Critical Care: The total critical care time was 35 minutes. Time to perform other separately billable procedures was not included in the critical care time. David Lund MD Dec 07, 2016 07:54
[2016-12-07] MEDS: INSULIN HUMAN NPH/R 70/30 1,000 UNITS/10 ML VIAL SQ SCH ×2 (09:00→17:00)
[2016-12-07] MEDS ORDERED: PNEUMOCOCCAL POLYVALENT INJ 25 MCG/0.5 ML SYR IM ONE (09:00)
[2016-12-07] MEDS: POTASSIUM CHLORIDE 20 MEQ CONTROLLED RELEASE TAB PO SCH ×2 (09:12→20:25)
[2016-12-07] MEDS: CARVEDILOL 6.25 MG TAB PO SCH ×2 (09:12→20:25)
[2016-12-07] MEDS: SODIUM CHLORIDE 0.9% FLUSH 10 ML FLUSH IV FLUSH SCH ×2 (09:12→20:25)
[2016-12-07] MEDS: LISINOPRIL 10 MG TAB PO SCH ×2 (09:12→20:25)
[2016-12-07] MEDS: cloNIDine HCL 0.1 MG TAB PO SCH ×2 (09:12→20:25)
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
[2016-12-07] MEDS: POTASSIUM PHOSPHATE/SODIUM PHOSPHATE 250 MG TAB PO SCH ×2 (12:16→17:36)
--- NOTE | 2016-12-07 14:54 | EKG ---
Date Performed: 12/06/2016 Time Performed: 21:11:02 PTAGE: 66 years EKG: Sinus rhythm BORDERLINE LEFT AXIS DEVIATION NONSPECIFIC T-WAVE ABNORMALITY Possible anteroseptal infarct, age und etermined Compared to prior tracing no significant change BORDERLINE ECG PREVIOUS TRACING : 12/06/2016 09.31 DOCTOR: Ilya Uribe Interpretating Date/Time 12/07/2016 14:53:31
--- NOTE | 2016-12-07 17:14 | EC ---
Study Study Date:12/07/2016 STUDY CONCLUSIONS SUMMARY LEFT VENTRICLE: The cavity size was normal. Wall thickness was increased in a pattern of mild LVH. There was concentric hypertrophy. Systolic function was normal. The estimated ejection fraction was in the range of 60% to 65%. Wall motion was normal; there were no regional wall motion abnormalities. Doppler parameters are consistent with abnormal left ventricular relaxation (grade 1 diastolic dysfunction). If LV function is below 40, please consider prescribing an ACEI or ARB or document rationale for non-use. PROCEDURE DATA STUDY STATUS: Elective. Procedure: Transthoracic echocardiography. Image quality was good. Scanning was performed from the parasternal, apical, and subcostal acoustic windows. Study completion: The patient tolerated the procedure well. Transthoracic echocardiography. M-mode, complete 2D, complete spectral Doppler, and color Doppler. Patient status: Inpatient. CARDIAC ANATOMY LEFT VENTRICLE: The cavity size was normal. Wall thickness was increased in a pattern of mild LVH. There was concentric hypertrophy. Systolic function was normal. The estimated ejection fraction was in the range of 60% to 65%. Wall motion was normal; there were no regional wall motion abnormalities. Doppler parameters are consistent with abnormal left ventricular relaxation (grade 1 diastolic dysfunction). AORTIC VALVE: Probably trileaflet. Doppler: There was no stenosis. No significant regurgitation. MITRAL VALVE: The valve appears to be grossly normal. Doppler: There was no evidence for stenosis. Trace to mild regurgitation. Peak gradient: 2mm Hg (D). LEFT ATRIUM: The atrium was normal in size. RIGHT VENTRICLE: The cavity size was normal. PULMONIC VALVE: Not well visualized. Doppler: There was no evidence for stenosis. Trace regurgitation. TRICUSPID VALVE: The valve appears to be grossly normal. Doppler: There was no evidence for stenosis. Trace regurgitation. BASIC MEASUREMENTS ADULT Normal Left ventricle LV internal dimension, ED, chordal level, *42.6 mm 43-52 PLAX LV internal dimension, ES, chordal level, 32 mm 23-38 PLAX Fractional shortening, chordal level, PLAX *25 % >29 LV posterior wall thickness, ED 8.46 mm IVS/LVPW ratio, ED *1.68 <1.3 Ventricular septum Septal thickness, ED 14.2 mm Left atrium Anterior-posterior dimension 30 mm Right ventricle RV internal dimension, ED, PLAX 20.3 mm 19-38 BASIC MEASUREMENTS ADULT Normal Ventricular septum Septal thickness, ED 18.7 mm Aorta Root diameter, ED 28 mm 20-37 DOPPLER MEASUREMENTS ADULT Normal Main pulmonary artery Pressure, S 14 mm Hg =30 Mitral valve Peak E-wave velocity 75.3 cm/s Peak A-wave velocity 114 cm/s Peak gradient, D 2 mm Hg Peak E/A ratio 0.7 Tricuspid valve Regurgitant peak velocity 130 cm/s Peak RV-RA gradient, S 7 mm Hg Maximal regurgitant velocity 130 cm/s Systemic veins Estimated CVP 5 mm Hg Right ventricle RV pressure, S 14 mm Hg <30 LEGEND: Mean values are shown as u=mean value. Asterisk (*) ceballos values outside specified normal range. Prepared and signed by Logan Finch [id number]
[2016-12-08] VITALS (7 sets, daily range): BP systolic 118–144; BP diastolic 59–70; PULSE 70–84; RESP 17–21; TEMP 96–98.3; O2SAT 95–98
[2016-12-08] MEDS: PIPERACIL-TAZO 4.5 GM PREMIX 100 ML IV SCH ×3 (01:50→17:32)
[2016-12-08] MEDS: POTASSIUM PHOSPHATE/SODIUM PHOSPHATE 250 MG TAB PO SCH (01:51)
[2016-12-08] MEDS: INSULIN NovoLIN REGULAR SUPPLEMENTAL SCALE SQ SCH ×5 (03:00→21:00)
[2016-12-08] MEDS: CHLORHEXIDINE GLUCONATE 2 % 1 PACK (2 CLOTHS) TOP SCH (03:48)
[2016-12-08] MEDS: PANTOPRAZOLE SODIUM 40 MG VIAL IV SCH ×2 (03:48→17:31)
[2016-12-08] MEDS: metroNIDAZOLE 500 MG INJ 100 ML IV SCH ×3 (03:48→21:00)
[2016-12-08 06:24] LABS: AUTOMATED NEUTROPHIL # 7.6 TH/MM3 (1.8-7.7); BASOPHIL # 0.1 TH/MM3 (0-0.2); BASOPHIL % 0.9 % (0.0-2.0); EOSINOPHIL # 0.3 TH/MM3 (0-0.4); EOSINOPHIL % 2.5 % (0.0-4.0); HEMATOCRIT 36.7 % (35.0-46.0); HEMO FLAGS DIFF FINAL; LYMPH % 18.9 % (9.0-44.0); MEAN CELL VOLUME 87.5 FL (80.0-100.0); MEAN CORPUSCULAR HEMOGLOBIN 29.7 PG (27.0-34.0); NEUT % 72.7 % (16.0-70.0); PLATELET COUNT 246 TH/MM3 (150-450); RED CELL DISTRIBUTION WIDTH 14.3 % (11.6-17.2); WHITE BLOOD COUNT 10.5 TH/MM3 (4.0-11.0)
[2016-12-08 07:01] LABS: BICARBONATE 23.7 MEQ/L (21.0-32.0); MAGNESIUM 2.2 MG/DL (1.5-2.5); POTASSIUM 3.7 MEQ/L (3.5-5.1)
[2016-12-08] MEDS: LISINOPRIL 10 MG TAB PO SCH ×2 (08:23→21:01)
[2016-12-08] MEDS: SODIUM CHLORIDE 0.9% FLUSH 10 ML FLUSH IV FLUSH SCH ×2 (08:23→21:00)
[2016-12-08] MEDS: INSULIN HUMAN NPH/R 70/30 1,000 UNITS/10 ML VIAL SQ SCH ×2 (08:23→17:32)
[2016-12-08] MEDS: CARVEDILOL 6.25 MG TAB PO SCH ×2 (08:23→21:01)
[2016-12-08] MEDS: cloNIDine HCL 0.1 MG TAB PO SCH ×2 (08:23→21:01)
[2016-12-08] MEDS: SODIUM CHLOR 0.9% 1000 ML INJ 1,000 ML IV SCH (12:59)
[2016-12-08] MEDS ORDERED: cloNIDine HCL 0.1 MG TAB PO PRN (13:45)
[2016-12-08] MEDS ORDERED: ENALAPRILAT 1.25 MG/ML VIAL IV PUSH PRN (13:45)
--- NOTE | 2016-12-08 13:52 | HHI.PR ---
Subjective Remarks Pt still with abd pain and tolerating some liquids No vomiting Afebrile Objective Vitals Vital Signs Date Time Temp Pulse Resp B/P Pulse Ox O2 Delivery O2 Flow Rate FiO2 12/08/16 12:00 97.7 70 17 118/64 97 12/08/16 09:44 98 Nasal Cannula 21 12/08/16 08:00 97.1 78 17 126/66 95 12/08/16 03:43 98.3 75 21 120/60 95 12/07/16 23:45 98.7 78 20 113/57 96 12/07/16 20:00 78 12/07/16 20:00 97.6 78 21 143/67 98 12/07/16 16:00 97.8 78 16 122/60 95 12/07/16 15:00 Nasal Cannula 2.00 21 12/07/16 12/07/16 12/08/16 15:00 23:00 07:00 Intake Total 1185 ml 860 ml 615 ml Output Total 600 ml 900 ml Balance 1185 ml 260 ml -285 ml Intake Oral 480 ml 240 ml IV Total 1185 ml 380 ml 375 ml Output Urine Total 600 ml 900 ml # Bowel Movements 0 0 Result Diagram: 12/08/16 0555 12/08/16 0555 Other Results Laboratory Tests Test 12/06/16 12/06/16 12/06/16 12/07/16 13:47 19:56 22:35 02:46 Nasal Screen MRSA (PCR) MRSA NOT DETECTED Hemoglobin 13.1 GM/DL 13.4 GM/DL 13.0 GM/DL Hematocrit 37.7 % 39.2 % 38.5 % Test 12/07/16 12/08/16 04:06 05:55 White Blood Count 13.3 TH/MM3 10.5 TH/MM3 Red Blood Count 4.23 MIL/MM3 4.20 MIL/MM3 Hemoglobin 12.9 GM/DL 12.5 GM/DL Hematocrit 37.0 % 36.7 % Mean Corpuscular Volume 87.6 FL 87.5 FL Mean Corpuscular Hemoglobin 30.4 PG 29.7 PG Mean Corpuscular Hemoglobin 34.7 % 34.0 % Concent Red Cell Distribution Width 14.4 % 14.3 % Platelet Count 249 TH/MM3 246 TH/MM3 Mean Platelet Volume 7.6 FL 7.4 FL Neutrophils (%) (Auto) 74.1 % 72.7 % Lymphocytes (%) (Auto) 19.3 % 18.9 % Monocytes (%) (Auto) 4.9 % 5.0 % Eosinophils (%) (Auto) 1.0 % 2.5 % Basophils (%) (Auto) 0.7 % 0.9 % Neutrophils # (Auto) 9.8 TH/MM3 7.6 TH/MM3 Lymphocytes # (Auto) 2.6 TH/MM3 2.0 TH/MM3 Monocytes # (Auto) 0.7 TH/MM3 0.5 TH/MM3 Eosinophils # (Auto) 0.1 TH/MM3 0.3 TH/MM3 Basophils # (Auto) 0.1 TH/MM3 0.1 TH/MM3 CBC Comment DIFF FINAL DIFF FINAL Differential Comment Sodium Level 140 MEQ/L 140 MEQ/L Potassium Level 2.8 MEQ/L 3.7 MEQ/L Chloride Level 106 MEQ/L 108 MEQ/L Carbon Dioxide Level 23.7 MEQ/L 23.7 MEQ/L Anion Gap 10 MEQ/L 8 MEQ/L Blood Urea Nitrogen 8 MG/DL 8 MG/DL Creatinine 0.82 MG/DL 0.93 MG/DL Estimat Glomerular Filtration 85 ML/MIN 73 ML/MIN Rate Random Glucose 127 MG/DL 176 MG/DL Calcium Level 7.9 MG/DL 7.8 MG/DL Phosphorus Level 2.2 MG/DL 2.2 MG/DL Magnesium Level 1.9 MG/DL 2.2 MG/DL Total Bilirubin 0.8 MG/DL Aspartate Amino Transf 24 U/L (AST/SGOT) Alanine Aminotransferase 25 U/L (ALT/SGPT) Alkaline Phosphatase 96 U/L Total Protein 6.1 GM/DL Albumin 2.8 GM/DL Triglycerides Level 63 MG/DL Cholesterol Level 112 MG/DL LDL Cholesterol 54 MG/DL HDL Cholesterol 45.6 MG/DL Cholesterol/HDL Ratio 2.45 RATIO Imaging Last Impressions Abdomen/Pelvis CT 12/06/16 0000 Signed Impressions: Service Date/Time: Monday, December 05, 2016 23:14 - CONCLUSION: 1. Patent mesenteric vessels. Abe March Jr., MD Objective Remarks General: NAD, AAOx3 Chest: CTA Cardiac: regular Abd: +BS, distended, diffusely tender, worse on the left side Ext: No edema A/P Problem List: (1) Ischemic colitis Status: Acute Plan: - Pt is a 66 y/o who presented to the ED with complaints of severe lower abdominal pain with rectal bleeding. - CT abd/pelvis with IV contrast (12/05/16)---> there is circumferential wall thickening and mild stranding of the pericolonic fat throughout the descending colon, distal to this the rectosigmoid colon and proximal to this the transverse and ascending colon are normal in appearance. Small bowel is unremarkable. No free air or free fluid. - CTA (12/05/16)--> patent mesenteric vessels. - GI was following - Colonoscopy on 12/06/16 --> Ischemic colitis involving descending, splenic flexure, and small internal hemorrhoids. - Pt has been on Zosyn and Flagyl. - [place] and Morphine PRN pain - DVT prophylaxis with SCDs (2) Diabetes mellitus Status: Chronic Plan: - NovoLog SSI - Accu checks (3) Hypertension Status: Chronic Plan: - Cont. home meds, including Lisinopril, Coreg, Clonidine - Vasotec PRN (4) Hypokalemia Status: Acute Plan: - Improved with replacement Assessment and Plan Patient examined. Assessment and plan formulated with Mesha Sim PA-C. I agree with the above. Problem Qualifiers (1) Diabetes mellitus: Mesha Sim Dec 08, 2016 13:52 Jono Quinones DO December 20, 2016 11:20
[2016-12-09] VITALS (7 sets, daily range): BP systolic 115–146; BP diastolic 60–79; PULSE 68–85; RESP 16–19; TEMP 97.2–97.8; O2SAT 95–98
[2016-12-09] MEDS: MORPHINE SULFATE 4 MG/ML INJ IV PRN ×2 (00:18→15:39)
[2016-12-09] MEDS: PIPERACIL-TAZO 4.5 GM PREMIX 100 ML IV SCH ×2 (02:18→10:00)
[2016-12-09] MEDS: INSULIN NovoLIN REGULAR SUPPLEMENTAL SCALE SQ SCH ×5 (03:00→20:45)
[2016-12-09] MEDS: PANTOPRAZOLE SODIUM 40 MG VIAL IV SCH ×2 (03:46→15:41)
[2016-12-09] MEDS: CHLORHEXIDINE GLUCONATE 2 % 1 PACK (2 CLOTHS) TOP SCH (03:50)
[2016-12-09] MEDS: metroNIDAZOLE 500 MG INJ 100 ML IV SCH ×2 (05:44→12:15)
[2016-12-09] MEDS: INSULIN HUMAN NPH/R 70/30 1,000 UNITS/10 ML VIAL SQ SCH ×2 (07:23→17:34)
[2016-12-09] MEDS: SODIUM CHLOR 0.9% 1000 ML INJ 1,000 ML IV SCH ×2 (08:06→20:45)
[2016-12-09] MEDS: CARVEDILOL 6.25 MG TAB PO SCH ×2 (09:00→20:44)
[2016-12-09] MEDS: LISINOPRIL 10 MG TAB PO SCH ×2 (09:00→20:44)
[2016-12-09] MEDS: SODIUM CHLORIDE 0.9% FLUSH 10 ML FLUSH IV FLUSH SCH ×2 (09:00→20:48)
[2016-12-09] MEDS: ONDANSETRON HCL 4 MG/2 ML VIAL IV PRN (09:00)
[2016-12-09] MEDS: cloNIDine HCL 0.1 MG TAB PO SCH ×2 (09:00→20:44)
--- NOTE | 2016-12-09 15:17 | HHI.PR ---
Subjective Remarks Pt reports that the pain is slightly improved today No rectal bleeding so far today She had one soft brown BM this morning Tolerating clear liquids and wants to try full liquids. Objective Vitals Vital Signs Date Time Temp Pulse Resp B/P Pulse Ox O2 Delivery O2 Flow Rate FiO2 12/09/16 12:00 97.5 68 17 121/63 96 12/09/16 09:32 97 21 12/09/16 08:00 97.2 73 18 142/68 97 12/09/16 00:00 97.2 74 19 128/60 95 12/08/16 20:00 96.0 71 19 144/70 95 12/08/16 20:00 84 12/08/16 16:48 97 21 12/08/16 16:00 97.1 75 17 123/59 98 12/08/16 12/08/16 12/09/16 15:00 23:00 07:00 Intake Total 869 ml 240 ml 240 ml Output Total 750 ml 400 ml 550 ml Balance 119 ml -160 ml -310 ml Intake Oral 400 ml 240 ml 240 ml IV Total 469 ml Output Urine Total 750 ml 400 ml 550 ml # Bowel Movements 0 0 0 Result Diagram: 12/08/16 0555 12/08/16 0555 Other Results Laboratory Tests Test 12/08/16 05:55 White Blood Count 10.5 TH/MM3 Red Blood Count 4.20 MIL/MM3 Hemoglobin 12.5 GM/DL Hematocrit 36.7 % Mean Corpuscular Volume 87.5 FL Mean Corpuscular Hemoglobin 29.7 PG Mean Corpuscular Hemoglobin 34.0 % Concent Red Cell Distribution Width 14.3 % Platelet Count 246 TH/MM3 Mean Platelet Volume 7.4 FL Neutrophils (%) (Auto) 72.7 % Lymphocytes (%) (Auto) 18.9 % Monocytes (%) (Auto) 5.0 % Eosinophils (%) (Auto) 2.5 % Basophils (%) (Auto) 0.9 % Neutrophils # (Auto) 7.6 TH/MM3 Lymphocytes # (Auto) 2.0 TH/MM3 Monocytes # (Auto) 0.5 TH/MM3 Eosinophils # (Auto) 0.3 TH/MM3 Basophils # (Auto) 0.1 TH/MM3 CBC Comment DIFF FINAL Differential Comment Sodium Level 140 MEQ/L Potassium Level 3.7 MEQ/L Chloride Level 108 MEQ/L Carbon Dioxide Level 23.7 MEQ/L Anion Gap 8 MEQ/L Blood Urea Nitrogen 8 MG/DL Creatinine 0.93 MG/DL Estimat Glomerular Filtration 73 ML/MIN Rate Random Glucose 176 MG/DL Calcium Level 7.8 MG/DL Phosphorus Level 2.2 MG/DL Magnesium Level 2.2 MG/DL Imaging Last Impressions Abdomen/Pelvis CT 12/06/16 0000 Signed Impressions: Service Date/Time: Monday, December 05, 2016 23:14 - CONCLUSION: 1. Patent mesenteric vessels. Abe March Jr., MD Objective Remarks General: NAD, AAOx3 Chest: CTA Cardiac: regular Abd: +BS, distended, diffusely tender, worse on the left side (slightly improved ) Ext: No edema A/P Problem List: (1) Ischemic colitis Status: Acute Plan: - Pt is a 66 y/o who presented to the ED with complaints of severe lower abdominal pain with rectal bleeding. - CT abd/pelvis with IV contrast (12/05/16)---> there is circumferential wall thickening and mild stranding of the pericolonic fat throughout the descending colon, distal to this the rectosigmoid colon and proximal to this the transverse and ascending colon are normal in appearance. Small bowel is unremarkable. No free air or free fluid. - CTA (12/05/16)--> patent mesenteric vessels. - GI was following - Colonoscopy on 12/06/16 --> Ischemic colitis involving descending, splenic flexure, and small internal hemorrhoids. - Pt has been on Zosyn and Flagyl we will stop these today. - [place] and Morphine PRN pain - Advance to full liquid diet today - DVT prophylaxis with SCDs (2) Diabetes mellitus Status: Chronic Plan: - NovoLog SSI - Accu checks (3) Hypertension Status: Chronic Plan: - Cont. home meds, including Lisinopril, Coreg, Clonidine - Vasotec PRN (4) Hypokalemia Status: Acute Plan: - Improved with replacement Assessment and Plan Patient examined. Assessment and plan formulated with Mesha Sim PA-C. I agree with the above. Problem Qualifiers (1) Diabetes mellitus: Mesha Sim Dec 09, 2016 15:17 Jono Quinones DO December 20, 2016 11:21
[2016-12-10] VITALS: BP 133/73; PULSE 76; RESP 16; TEMP 97.5; O2SAT 96
[2016-12-10] MEDS: INSULIN NovoLIN REGULAR SUPPLEMENTAL SCALE SQ SCH ×5 (03:00→20:30)
[2016-12-10] MEDS: PANTOPRAZOLE SODIUM 40 MG VIAL IV SCH ×2 (03:09→17:16)
[2016-12-10] MEDS: CHLORHEXIDINE GLUCONATE 2 % 1 PACK (2 CLOTHS) TOP SCH (03:10)
[2016-12-10 04:00] VITALS: BP 152/73; PULSE 63; RESP 18; TEMP 98; O2SAT 95
[2016-12-10 05:52] LABS: BICARBONATE 23.7 MEQ/L (21.0-32.0); POTASSIUM 3.4 MEQ/L (3.5-5.1)
[2016-12-10 08:00] VITALS: BP 153/81; PULSE 75; RESP 17; TEMP 97.2; O2SAT 98
[2016-12-10] MEDS: INSULIN HUMAN NPH/R 70/30 1,000 UNITS/10 ML VIAL SQ SCH ×2 (08:00→17:00)
[2016-12-10] MEDS: CARVEDILOL 6.25 MG TAB PO SCH ×2 (08:44→20:27)
[2016-12-10] MEDS: cloNIDine HCL 0.1 MG TAB PO SCH ×2 (08:44→20:28)
[2016-12-10] MEDS: LISINOPRIL 10 MG TAB PO SCH ×2 (08:44→20:28)
[2016-12-10] MEDS: SODIUM CHLORIDE 0.9% FLUSH 10 ML FLUSH IV FLUSH SCH ×2 (08:46→20:28)
[2016-12-10] MEDS ORDERED: POTASSIUM CHLORIDE 20 MEQ CONTROLLED RELEASE TAB PO ONE (11:45)
[2016-12-10 12:00] VITALS: BP 128/73; PULSE 73; RESP 18; TEMP 97.3; O2SAT 93
--- NOTE | 2016-12-10 12:56 | HHI.PR ---
Subjective Remarks No new complaints. Objective Vitals Vital Signs Date Time Temp Pulse Resp B/P Pulse Ox O2 Delivery O2 Flow Rate FiO2 12/10/16 12:00 97.3 73 18 128/73 93 12/10/16 12:00 97.3 73 18 128/73 93 12/10/16 08:00 97.2 75 17 153/81 98 12/10/16 04:00 98.0 63 18 152/73 95 12/10/16 00:00 97.5 76 16 133/73 96 12/09/16 20:00 81 12/09/16 19:42 97.8 85 16 115/79 96 12/09/16 16:01 18 12/09/16 16:00 97.8 74 19 146/70 98 12/09/16 12/09/16 12/10/16 15:00 23:00 07:00 Intake Total 400 ml 360 ml 2584 ml Output Total 1500 ml 450 ml 1100 ml Balance -1100 ml -90 ml 1484 ml Intake Oral 400 ml 360 ml 360 ml IV Total 2224 ml Output Urine Total 1500 ml 450 ml 1100 ml # Bowel Movements 1 0 0 Result Diagram: 12/08/16 0555 12/10/16 0419 Other Results Laboratory Tests Test 12/10/16 04:19 Sodium Level 139 MEQ/L Potassium Level 3.4 MEQ/L Chloride Level 106 MEQ/L Carbon Dioxide Level 23.7 MEQ/L Anion Gap 9 MEQ/L Blood Urea Nitrogen 7 MG/DL Creatinine 0.89 MG/DL Estimat Glomerular Filtration 77 ML/MIN Rate Random Glucose 132 MG/DL Calcium Level 8.5 MG/DL Imaging Last Impressions Abdomen/Pelvis CT 12/06/16 0000 Signed Impressions: Service Date/Time: Monday, December 05, 2016 23:14 - CONCLUSION: 1. Patent mesenteric vessels. Abe March Jr., MD Objective Remarks General: NAD, AAOx3 Chest: CTA Cardiac: regular Abd: +BS, distended, diffusely tender, worse on the left side (slightly improved ) Ext: No edema A/P Problem List: (1) Ischemic colitis Status: Acute Plan: - Pt is a 66 y/o who presented to the ED with complaints of severe lower abdominal pain with rectal bleeding. - CT abd/pelvis with IV contrast (12/05/16)---> there is circumferential wall thickening and mild stranding of the pericolonic fat throughout the descending colon, distal to this the rectosigmoid colon and proximal to this the transverse and ascending colon are normal in appearance. Small bowel is unremarkable. No free air or free fluid. - CTA (12/05/16)--> patent mesenteric vessels. - GI was following - Colonoscopy on 12/06/16 --> Ischemic colitis involving descending, splenic flexure, and small internal hemorrhoids. - Pt has been on Zosyn and Flagyl these were stopped on 12/09 - [place] and Morphine PRN pain - Advance diet as tolerated - DVT prophylaxis with SCDs (2) Diabetes mellitus Status: Chronic Plan: - Blood sugars are stable - NovoLog SSI - Accu checks (3) Hypertension Status: Chronic Plan: - Cont. home meds, including Lisinopril, Coreg, Clonidine - Vasotec PRN (4) Hypokalemia Status: Acute Plan: - Improved with replacement Assessment and Plan Patient examined. Assessment and plan formulated with Mesha Sim PA-C. I agree with the above. Problem Qualifiers (1) Diabetes mellitus: Mesha Sim Dec 10, 2016 12:56 Jono Quinones DO December 20, 2016 11:22
--- NOTE | 2016-12-10 14:28 | HHI.PR ---
Subjective Remarks Pt reports decreased abdominal pain and request that her diet to be advanced. Pt c/o 3 episodes of watery diarrhea today. Objective Vitals Vital Signs Date Time Temp Pulse Resp B/P Pulse Ox O2 Delivery O2 Flow Rate FiO2 12/10/16 12:00 97.3 73 18 128/73 93 12/10/16 12:00 97.3 73 18 128/73 93 12/10/16 08:00 97.2 75 17 153/81 98 12/10/16 04:00 98.0 63 18 152/73 95 12/10/16 00:00 97.5 76 16 133/73 96 12/09/16 20:00 81 12/09/16 19:42 97.8 85 16 115/79 96 12/09/16 16:01 18 12/09/16 16:00 97.8 74 19 146/70 98 12/09/16 12/09/16 12/10/16 15:00 23:00 07:00 Intake Total 400 ml 360 ml 2584 ml Output Total 1500 ml 450 ml 1100 ml Balance -1100 ml -90 ml 1484 ml Intake Oral 400 ml 360 ml 360 ml IV Total 2224 ml Output Urine Total 1500 ml 450 ml 1100 ml # Bowel Movements 1 0 0 Result Diagram: 12/08/16 0555 12/10/16 0419 Imaging Last Impressions Abdomen/Pelvis CT 12/06/16 0000 Signed Impressions: Service Date/Time: Monday, December 05, 2016 23:14 - CONCLUSION: 1. Patent mesenteric vessels. Abe March Jr., MD Objective Remarks General: NAD, AAOx3 Chest: CTA Cardiac: regular Abd: +BS, distended, non-tender, no g/r/r Ext: No edema A/P Problem List: (1) Ischemic colitis Status: Acute Plan: - Pt is a 66 y/o who presented to the ED with complaints of severe lower abdominal pain with rectal bleeding. - CT abd/pelvis with IV contrast (12/05/16)---> there is circumferential wall thickening and mild stranding of the pericolonic fat throughout the descending colon, distal to this the rectosigmoid colon and proximal to this the transverse and ascending colon are normal in appearance. Small bowel is unremarkable. No free air or free fluid. - CTA (12/05/16)--> patent mesenteric vessels. - GI was following - Colonoscopy on 12/06/16 --> Ischemic colitis involving descending, splenic flexure, and small internal hemorrhoids. - Pt has been on Zosyn and Flagyl these were stopped on 12/09 - [place] and Morphine PRN pain - Advance diet to soft ADA diet - obtain stool studies - repeat labs in AM - DVT prophylaxis with SCDs (2) Diabetes mellitus Status: Chronic Plan: - Blood sugars are stable - NovoLog SSI - Accu checks (3) Hypertension Status: Chronic Plan: - Cont. home meds, including Lisinopril, Coreg, Clonidine - Vasotec PRN (4) Hypokalemia Status: Acute Plan: - Improved with replacement Problem Qualifiers (1) Diabetes mellitus: Jono Quinones DO Dec 10, 2016 14:28
[2016-12-10 16:00] VITALS: BP 140/72; PULSE 65; RESP 18; TEMP 96.9; O2SAT 97
[2016-12-10 20:00] VITALS: BP 168/76; PULSE 69; RESP 16; TEMP 98.3; O2SAT 99
[2016-12-10] MEDS: SODIUM CHLOR 0.9% 1000 ML INJ 1,000 ML IV SCH (20:30)
[2016-12-10 21:12] LABS: C. DIFF EPI 027 PRESUMPTIVE NEGATIVE (NEGATIVE)
[2016-12-10 21:48] LABS: C. DIFF TOXIN PCR POSITIVE (NEGATIVE)
[2016-12-10] MEDS: METRONIDAZOLE 500 MG/100 ML ISONTONIC SOLN IV SCH (23:02)
[2016-12-11] VITALS: BP 133/70; PULSE 78; RESP 16; TEMP 98.7; O2SAT 97
[2016-12-11] MEDS: CHLORHEXIDINE GLUCONATE 2 % 1 PACK (2 CLOTHS) TOP SCH (02:14)
[2016-12-11] MEDS: INSULIN NovoLIN REGULAR SUPPLEMENTAL SCALE SQ SCH ×5 (02:14→21:00)
[2016-12-11] MEDS: PANTOPRAZOLE SODIUM 40 MG VIAL IV SCH ×2 (02:14→16:52)
[2016-12-11 04:33] LABS: AUTOMATED NEUTROPHIL # 5.3 TH/MM3 (1.8-7.7); BASOPHIL # 0.1 TH/MM3 (0-0.2); EOSINOPHIL # 0.2 TH/MM3 (0-0.4); EOSINOPHIL % 1.9 % (0.0-4.0); HEMO FLAGS DIFF FINAL; LYMPH % 29.3 % (9.0-44.0); LYMPHOCYTE # 2.5 TH/MM3 (1.0-4.8); MEAN CELL VOLUME 86.9 FL (80.0-100.0); MEAN CORPUSCULAR HEMOGLOBIN 29.8 PG (27.0-34.0); MEAN CORPUSCULAR HGB CONC 34.3 % (32.0-36.0); MONO % 6.2 % (0.0-8.0); NEUT % 61.6 % (16.0-70.0); PLATELET COUNT 271 TH/MM3 (150-450); RED BLOOD COUNT 4.14 MIL/MM3 (4.00-5.30); WHITE BLOOD COUNT 8.5 TH/MM3 (4.0-11.0)
[2016-12-11 05:02] LABS: BICARBONATE 23.4 MEQ/L (21.0-32.0); MAGNESIUM 1.9 MG/DL (1.5-2.5)
[2016-12-11] MEDS: METRONIDAZOLE 500 MG/100 ML ISONTONIC SOLN IV SCH (05:57)
[2016-12-11 08:00] VITALS: BP 133/67; PULSE 66; RESP 19; TEMP 97.1; O2SAT 95
[2016-12-11] MEDS ORDERED: VANCOMYCIN 500 MG VIAL (FOR ORAL USE ONLY) PO SCH (08:00)
[2016-12-11] MEDS: INSULIN HUMAN NPH/R 70/30 1,000 UNITS/10 ML VIAL SQ SCH ×2 (08:00→16:52)
[2016-12-11] MEDS: CARVEDILOL 6.25 MG TAB PO SCH ×2 (09:12→21:00)
[2016-12-11] MEDS: SODIUM CHLORIDE 0.9% FLUSH 10 ML FLUSH IV FLUSH SCH ×2 (09:12→21:00)
[2016-12-11] MEDS: cloNIDine HCL 0.1 MG TAB PO SCH ×2 (09:12→21:00)
[2016-12-11] MEDS: LISINOPRIL 10 MG TAB PO SCH ×2 (09:12→21:00)
--- NOTE | 2016-12-11 10:25 | HHI.PR ---
Subjective Remarks Pt had 3 episodes of diarrhea this AM. Less abdominal pain from admission Pt is tolerating soft diet. Objective Vitals Vital Signs Date Time Temp Pulse Resp B/P Pulse Ox O2 Delivery O2 Flow Rate FiO2 12/11/16 08:00 97.1 66 19 133/67 95 12/11/16 00:00 98.7 78 16 133/70 97 12/10/16 20:00 98.3 69 16 168/76 99 12/10/16 16:00 96.9 65 18 140/72 97 12/10/16 12:00 97.3 73 18 128/73 93 12/10/16 12:00 97.3 73 18 128/73 93 12/10/16 12/10/16 12/11/16 15:00 23:00 07:00 Intake Total 600 ml 360 ml 120 ml Output Total 1400 ml 500 ml Balance -800 ml -140 ml 120 ml Intake Oral 600 ml 360 ml 120 ml Output Urine Total 1400 ml 500 ml # Voids 2 # Bowel Movements 2 3 2 Result Diagram: 12/11/16 0339 12/11/16 0339 Imaging Last Impressions Abdomen/Pelvis CT 12/06/16 0000 Signed Impressions: Service Date/Time: Monday, December 05, 2016 23:14 - CONCLUSION: 1. Patent mesenteric vessels. Abe March Jr., MD Objective Remarks General: NAD, AAOx3 Chest: CTA Cardiac: regular Abd: +BS, distended, non-tender, no g/r/r Ext: No edema A/P Problem List: (1) Ischemic colitis Status: Acute Plan: - Comgmt with GI - Pt is a 66 y/o who presented to the ED with complaints of severe lower abdominal pain with rectal bleeding. - CT abd/pelvis with IV contrast (12/05/16)---> there is circumferential wall thickening and mild stranding of the pericolonic fat throughout the descending colon, distal to this the rectosigmoid colon and proximal to this the transverse and ascending colon are normal in appearance. Small bowel is unremarkable. No free air or free fluid. - CTA (12/05/16)--> patent mesenteric vessels. - Colonoscopy on 12/06/16 --> Ischemic colitis involving descending, splenic flexure, and small internal hemorrhoids. - Pt has been on Zosyn and Flagyl these were stopped on 12/09 - [place] and Morphine PRN pain - soft ADA diet - C. Dif positive - pt started on PO flagyl - observe for clinical response - DVT prophylaxis with SCDs (2) C. difficile colitis Status: Acute Plan: - see above (3) Diabetes mellitus Status: Chronic Plan: - Blood sugars are stable - NovoLog SSI - Accu checks (4) Hypertension Status: Chronic Plan: - Cont. home meds, including Lisinopril, Coreg, Clonidine - Vasotec PRN (5) Hypokalemia Status: Acute Plan: - Improved with replacement Problem Qualifiers (1) Diabetes mellitus: Jono Quinones DO Dec 11, 2016 10:25
[2016-12-11 12:00] VITALS: BP 126/62; PULSE 68; RESP 17; TEMP 97.7; O2SAT 96
[2016-12-11] MEDS: metroNIDAZOLE 500 MG TAB PO SCH ×2 (14:51→21:00)
[2016-12-11 16:00] VITALS: BP 156/71; PULSE 75; RESP 19; TEMP 97.4; O2SAT 95
[2016-12-11 20:00] VITALS: BP 165/85; PULSE 70; RESP 18; TEMP 98.6; O2SAT 97
[2016-12-11] MEDS: SODIUM CHLOR 0.9% 1000 ML INJ 1,000 ML IV SCH (20:06)
[2016-12-12] VITALS: BP 141/71; PULSE 74; RESP 16; TEMP 97.9; O2SAT 96
[2016-12-12] MEDS: PANTOPRAZOLE SODIUM 40 MG VIAL IV SCH (02:55)
[2016-12-12] MEDS: INSULIN NovoLIN REGULAR SUPPLEMENTAL SCALE SQ SCH ×4 (02:57→16:00)
[2016-12-12] MEDS: CHLORHEXIDINE GLUCONATE 2 % 1 PACK (2 CLOTHS) TOP SCH (04:00)
[2016-12-12 05:03] LABS: AUTOMATED NEUTROPHIL # 5.1 TH/MM3 (1.8-7.7); BASOPHIL # 0.1 TH/MM3 (0-0.2); BASOPHIL % 0.8 % (0.0-2.0); EOSINOPHIL # 0.2 TH/MM3 (0-0.4); EOSINOPHIL % 2.6 % (0.0-4.0); HEMATOCRIT 37.1 % (35.0-46.0); HEMO FLAGS DIFF FINAL; LYMPH % 30.2 % (9.0-44.0); LYMPHOCYTE # 2.6 TH/MM3 (1.0-4.8); MEAN CELL VOLUME 87.9 FL (80.0-100.0); MEAN CORPUSCULAR HEMOGLOBIN 29.6 PG (27.0-34.0); MEAN CORPUSCULAR HGB CONC 33.7 % (32.0-36.0); MONO % 6.8 % (0.0-8.0); NEUT % 59.6 % (16.0-70.0); PLATELET COUNT 275 TH/MM3 (150-450); RED BLOOD COUNT 4.22 MIL/MM3 (4.00-5.30); RED CELL DISTRIBUTION WIDTH 14.1 % (11.6-17.2); WHITE BLOOD COUNT 8.6 TH/MM3 (4.0-11.0)
[2016-12-12 05:10] LABS: BICARBONATE 24.7 MEQ/L (21.0-32.0); POTASSIUM 3.7 MEQ/L (3.5-5.1)
[2016-12-12] MEDS: metroNIDAZOLE 500 MG TAB PO SCH ×2 (05:56→14:02)
[2016-12-12 07:52] VITALS: BP 166/77; PULSE 71; RESP 18; TEMP 97.4; O2SAT 96
[2016-12-12] MEDS: cloNIDine HCL 0.1 MG TAB PO SCH (08:33)
[2016-12-12] MEDS: INSULIN HUMAN NPH/R 70/30 1,000 UNITS/10 ML VIAL SQ SCH (08:33)
[2016-12-12] MEDS: CARVEDILOL 6.25 MG TAB PO SCH (08:33)
[2016-12-12] MEDS: SODIUM CHLORIDE 0.9% FLUSH 10 ML FLUSH IV FLUSH SCH (08:33)
[2016-12-12] MEDS: LISINOPRIL 10 MG TAB PO SCH (08:33)
[2016-12-12 12:00] VITALS: BP 183/84; PULSE 68; RESP 19; TEMP 97.3; O2SAT 98
[2016-12-12] MEDS ORDERED: METR-1 PO (12:13)
--- NOTE | 2016-12-12 12:16 | HHI.DCPOC ---
Discharge Care Plan Diagnosis: (1) C. difficile colitis (2) Ischemic colitis (3) Hypertension (4) Diabetes mellitus Goals to Promote Your Health * To prevent worsening of your condition and complications * To maintain your health at the optimal level Directions to Meet Your Goals Take your medications as prescribed Follow your dietary instruction Follow activity as directed Keep your appointments as scheduled Take your immunizations and boosters as scheduled If your symptoms worsen call your PCP, if no PCP go to Urgent Care Center or Emergency Room Smoking is Dangerous to Your Health. Avoid second hand smoke Call the 24-hour hour crisis hotline for domestic abuse at Jono Quinones DO Dec 12, 2016 12:16
--- NOTE | 2016-12-12 12:20 | HHI.DS ---
Discharge Summary Admission Date Dec 06, 2016 at 02:58 Discharge Date: Dec 12, 2016 Admitting Diagnosis Hematochezia, Colitis (1) Ischemic colitis Diagnosis: Principal (2) C. difficile colitis Diagnosis: Principal (3) Diabetes mellitus Diagnosis: Secondary (4) Hypertension Diagnosis: Secondary Consultants Dr. Nahomi Ramirez, Gastroenterology Brief History 66-year-old very pleasant female presents for evaluation of bloody bowel movements with abdominal pain. Per patient the symptoms started at 11:00 a.m. prior to admission. She has been feeling nauseous and had a bowel movement that was red. Her pain has not improved and became more severe over an hour so she called the ambulance. She has never experienced any similar symptoms like this before. She has never had a heart attack or stroke. She doesn't smoke. CBC/BMP: 12/12/16 0413 12/12/16 0413 Significant Findings Laboratory Tests Test 12/10/16 12/10/16 12/11/16 12/12/16 04:19 19:00 03:39 04:13 Potassium Level 3.4 MEQ/L (3.5-5.1) Estimat Glomerular Filtration 77 ML/MIN (>89) 86 ML/MIN (>89) 82 ML/MIN (>89) Rate Random Glucose 132 MG/DL 155 MG/DL 169 MG/DL (74-106) (74-106) (74-106) Stool C. difficile Toxin (PCR) POSITIVE (NEGATIVE) Chloride Level 109 MEQ/L 108 MEQ/L (98-107) (98-107) PE at Discharge General: NAD, AAOx3 Chest: CTA Cardiac: regular Abd: +BS, distended, non-tender, no g/r/r Ext: No edema Transfer Summary This is a 66-year-old female. She is admitted to the morning of 12/[address] revealed colitis in the setting colon. No signs of mesenteric ischemia. Patient lactic acidosis which has since cleared. Colonoscopy was performed with results as above. Currently stable for transfer to floor. If worsens, will need general surgery consult. Hospital Course (1) Ischemic colitis Status: Acute Plan: - Comgmt with GI - Pt is a 66 y/o who presented to the ED with complaints of severe lower abdominal pain with rectal bleeding. - CT abd/pelvis with IV contrast (12/05/16)---> there is circumferential wall thickening and mild stranding of the pericolonic fat throughout the descending colon, distal to this the rectosigmoid colon and proximal to this the transverse and ascending colon are normal in appearance. Small bowel is unremarkable. No free air or free fluid. - CTA (12/05/16)--> patent mesenteric vessels. - Colonoscopy on 12/06/16 --> Ischemic colitis involving descending, splenic flexure, and small internal hemorrhoids. - Pt treated with Zosyn and Flagyl these were stopped on 12/09 - pt started on PO flagyl - soft ADA diet - C. Dif positive - Pt made good clinical improvement - NO further abdominal pain - only 1 episode of diarrhea on the day of discharge - continue PO flagyl for 10d total - f/u with PCP, Dr. Steele, in 1 week - f/u with GI, Dr. Ramirez, in 2 weeks. (2) C. difficile colitis Status: Acute Plan: - see above (3) Diabetes mellitus Status: Chronic Plan: - resume outpt treatment upon discharge (4) Hypertension Status: Chronic Plan: - Cont. home meds, including Lisinopril, Coreg, Clonidine - keep home BP log - f/u with PCP, in 1 week. May require further adjustment of BP medication regimen. (5) Hypokalemia Status: Acute Plan: - Improved with replacement Pt Condition on Discharge: Stable Discharge Disposition: Discharge Home Discharge Instructions DIET: Follow Instructions for: Heart Healthy Diet, Diabetic Diet Activities you can perform: Regular-No Restrictions Follow up Referrals: Gastroenterology - 2 Weeks with Nahomi Ramirez MD PCP Follow-up - [address] Betsy Steele New Medications: Metronidazole (Flagyl) 500 Mg Tab 500 MG PO Q8HR C. Dif #27 Ref 0 TAB Continued Medications: Carvedilol (Coreg) 12.5 Mg Tab 12.5 MG PO BID #60 Ref 0 TAB Clonidine (Clonidine) 0.2 Mg Tab 0.2 MG PO BID Blood Pressure Management #60 Ref 0 TAB Hydrochlorothiazide (Hydrochlorothiazide) 25 Mg Tab 25 MG PO BID #30 TAB Insulin Glargine Inj (Lantus Inj) 100 Unit/Ml Inj 10 Insulin Human Isophane-Regular 70-30 Inj (Novolin 70-30 Inj) 1,000 Unit/10 Ml Vial 40 UNITS SQ Blood Sugar Management Ref 0 ML Lisinopril (Lisinopril) 40 Mg Tab 40 MG PO DAILY Blood Pressure Management #30 Ref 0 TAB Jono Quinones DO Dec 12, 2016 12:20
== END 2016-12-12 17:59 | disposition home or self-care (01) | DRG 394 ==
LOC: NEPE 21:34 → NEDA 12-06 02:58 → NEDH 12-06 06:50 → HIMW 12-06 13:35 → N07A 12-07 13:54
PROVIDERS: ADMIT Hospitalist; ATTEND Hospitalist
PROC: 0DBN8ZX Excision of Sigmoid Colon, Via Natural or Artificial Opening Endoscopic, Diagnostic (ICD-10-PCS; 2016-12-06)
PROC: 30233N1 Transfusion of Nonautologous Red Blood Cells into Peripheral Vein, Percutaneous Approach (ICD-10-PCS; 2016-12-06)
PROC: 0DBM8ZX Excision of Descending Colon, Via Natural or Artificial Opening Endoscopic, Diagnostic (ICD-10-PCS; principal; 2016-12-06 17:20)
DX: K55.8 Other vascular disorders of intestine (principal); N17.9 Acute kidney failure, unspecified; E87.2 Acidosis; A04.7 Enterocolitis due to Clostridium difficile; E11.65 Type 2 diabetes mellitus with hyperglycemia; E83.39 Other disorders of phosphorus metabolism; K51.50 Left sided colitis without complications; K62.5 Hemorrhage of anus and rectum; K64.8 Other hemorrhoids; M25.519 Pain in unspecified shoulder; E78.00 Pure hypercholesterolemia, unspecified; I10 Essential (primary) hypertension; R31.9 Hematuria, unspecified; G43.909 Migraine, unspecified, not intractable, without status migrainosus; E87.6 Hypokalemia; E78.5 Hyperlipidemia, unspecified; K21.9 Gastro-esophageal reflux disease without esophagitis; M54.2 Cervicalgia; M54.9 Dorsalgia, unspecified; Z23 Encounter for immunization
CPT/HCPCS: 36430; 74174; 74177; 80048; 80053; 80061; 81001; 82272; 82948; 83605; 83690; 83735; 84100; 84484; 85014; 85018; 85025; 85610; 85730; 86850; 86900; 86901; 86920; 87040; 87205; 87207; 87328; 87329; 87493; 87506; 87641; 88305; 90732; 93005; 93306; 94150; 96361; 96365; 96375; C9113; J0696; J1815; J2270; J2405; J2543; J3475; J3480; J7030; J7050; P9016; Q9967